=== PATIENT | female | born 1950 | race Caucasian/White ===

== ENCOUNTER → 2016-07-14 09:20 | Outpatient (CLI) | payer MEDICARE, BC ==
[2016-01-20 08:44] VITALS: BMI 29.9
[~2016-07-14 09:20] MED LIST: ALBUTEROL2.5 MG/3 M INH; BENZONATATE200 MG PO; BREO ELLIPTA 21 EACH; CROMOLYN SOD40 MG/ML NS; DYMISTA; MUCINEX600 MG PO; SALINE NASAL SP45 ML NS; SINGULAIR10 MG PO; SUDAFED 30 MG T30 MG PO; VENTOLIN HFA18 GM INH
[2016-07-18 15:22] LABS: ANCA - ANTIMYELOPEROXIDASE <9.0 U/mL (0.0-9.0); ANCA - ANTIPROTEINASE 3 <3.5 U/mL (0.0-3.5); ANCA - ATYPICAL <1:20 titer (Neg:<1:20); ANCA - CYTOPLASMIC <1:20 titer (Neg:<1:20); ANCA - PERINUCLEAR <1:20 titer (Neg:<1:20)
== END | disposition home or self-care (01) ==
LOC: D.RAD 09:20
PROVIDERS: Internal Medicine Pulmonary Disease
DX: J45.909 Unspecified asthma, uncomplicated (principal)

== ENCOUNTER → 2016-08-15 10:02 | Outpatient (CLI) | payer MEDICARE, BC ==
[2016-01-20 08:44] VITALS: BMI 29.9
== END | disposition home or self-care (01) ==
LOC: D.CT 10:02
DX: J32.9 Chronic sinusitis, unspecified (principal)

== ENCOUNTER → 2016-12-11 10:16 | Outpatient (CLI) | payer MEDICARE, BC ==
[2016-01-20 08:44] VITALS: BMI 29.9
== END | disposition home or self-care (01) ==
LOC: D.RT 10:16
DX: J45.909 Unspecified asthma, uncomplicated (principal)

== ENCOUNTER → 2017-03-28 14:24 | Outpatient (CLI) | payer MEDICARE, BC ==
[2016-01-20 08:44] VITALS: BMI 29.9
[~2017-03-28 14:24] MED LIST changes: +AZELASTINE137 MCG/0. NASAL; +BREO ELLIPTA 11 EACH INH; +CLARITIN 10 MG10 MG PO; +FLUTICASONE PRO16 GM NASAL; +IPRAT-ALBUT 0.5-3 ML UPD; +TESSALON PERLE100 MG PO; +TRAZODONE HCL50 MG PO
[2017-04-05 14:23] LABS: AEROBE ID Final report (())
== END | disposition home or self-care (01) ==
LOC: D.LABREF 14:24
PROVIDERS: Otolaryngology
DX: J32.0 Chronic maxillary sinusitis (principal)

== ENCOUNTER 2017-05-07 06:58 | Day surgery (SDC) | payer MEDICARE, BC ==
[~2017-05-07] VITALS: Ht 167.6 cm; Wt 73.5 kg
[~2017-05-07 06:58] MED LIST changes: -BREO ELLIPTA 11 EACH INH; -CLARITIN 10 MG10 MG PO; -IPRAT-ALBUT 0.5-3 ML UPD; -TESSALON PERLE100 MG PO; -TRAZODONE HCL50 MG PO
[2017-05-07] MEDS ORDERED: IPRAT-ALBUT 0.5-3 ML UPD (07:24)
[2017-05-07] MEDS ORDERED: AZELASTINE137 MCG/0. NASAL (07:26)
[2017-05-07] MEDS ORDERED: BREO ELLIPTA 11 EACH INH (07:26)
[2017-05-07] MEDS ORDERED: TESSALON PERLE100 MG PO (07:28)
[2017-05-07] MEDS ORDERED: TRAZODONE HCL50 MG PO (07:28)
[2017-05-07] MEDS ORDERED: CLARITIN 10 MG10 MG PO (07:29)
[2017-05-07 07:33] VITALS: BP 135/74; Ht 167.6 cm; Wt 73.5 kg
[2017-05-07 08:22] LABS: HEMATOCRIT 39.4 % (36.0-48.0); HEMOGLOBIN 13.2 g/dL (12-16); MCH 30.5 pg (26.0-34.0); MCHC 33.5 g/dL (31.0-37.0); MEAN PLATELET VOLUME 11.2 fL (7.4-10.4); RBC 4.33 10x6/uL (4.00-5.40); RDW 13.5 % (11.5-14.5); WBC 6.7 10x3/uL (4.8-10.8)
[2017-05-13 17:07] LABS: AEROBE ID Final report (())
[2017-05-13 17:07] LABS: AEROBE ID Final report (())
[2017-05-17 17:13] LABS: AEROBE ID Final report (())
[2017-05-20 18:06] LABS: AEROBE ID Final report (())
[2017-05-21 15:18] LABS: AEROBE ID Final report (()); RESULT 1 Cupriavidus paucula (())
--- NOTE | 2017-06-20 13:13 | HP ---
PATIENT: ANA MARIA PELAYO MEDICAL RECORD: [id number] ACCOUNT: [id number] LOCATION:D.[facility] : 46 ADMISSION DATE: 05/07/17 HISTORY AND PHYSICAL EXAMINATION HISTORY: Ms. Pelayo is 67. She has had persistent problems with sinusitis, COPD, and airway disease. She has been admitted for sinus surgery. PAST MEDICAL HISTORY: Includes COPD and sleep apnea. CURRENT MEDICATIONS: Include DuoNeb inhaler, Breo Ellipta inhaler, Astelin nasal spray, Flonase nasal spray, Singulair, Ventolin inhaler, Mucinex, and Tessalon Perles. ALLERGIES: MORPHINE. PHYSICAL EXAMINATION: GENERAL: She is overweight. FACE: Normal and symmetric. No lesions. EYES: Sclerae and conjunctivae are normal. EARS: Canals and TMs are normal. NOSE: She has a little bit of drainage bilaterally. ORAL CAVITY AND OROPHARYNX: Tongue protrudes to midline. Pharynx is normal. No lesions or masses. NECK: No masses. No adenopathy. CHEST: She has some mild rhonchi. CARDIOVASCULAR: Regular rate and rhythm. IMPRESSION: Significant airway disease. She has some chronic sinusitis, which may or may not be exacerbating that. She is being admitted for bilateral medial antrostomy, bilateral anterior ethmoidectomy, and bilateral inferior turbinate reduction. TRANSINT:[id number] Voice Confirmation ID: [id number] DOCUMENT ID: [id number] WARREN MUJICA MD at 1313 CC: [id number] DICTATION DATE: 05/03/17 1529 CARPENTER ASSEMBLER: 05/03/17 1626 [facility] 05/07/[address] [address]
--- NOTE | 2017-06-20 13:13 | OP ---
PATIENT NAME: ANA MARIA PELAYO MEDICAL RECORD: [id number] :46 LOCATION:[facility] ADMISSION DATE: SURGEON: WARREN SALDAÑA MD DATE OF OPERATION: 05/07/2017 PREOPERATIVE DIAGNOSIS: Chronic sinusitis. POSTOPERATIVE DIAGNOSIS: Chronic sinusitis. PROCEDURE: Bilateral middle meatal antrostomy, bilateral anterior ethmoidectomy, and cautery of the inferior turbinates. SURGEON: Warren Saldaña MD ANESTHESIA: General orotracheal. BLOOD LOSS: Less than 20 cc. SPECIMENS: Cultures from the right and left maxillary sinuses. PACKING: None. COMPLICATIONS: None. DISPOSITION: Recovery stable. PROCEDURE NOTE: She was brought to the operating room and placed in supine position, sedated and intubated by anesthesia. The table was turned 90 degrees. A head drape was applied and she was positioned for nasal surgery. Using a headlight and nasal speculum, both sides of the nose were examined. The inferior turbinates, the uncinate, and root of the middle turbinate were injected bilaterally with a total of 1.5 cc of 1% lidocaine 1:100,000 epinephrine. An Afrin pledget was placed in the middle meatus and along the inferior turbinate on each side. She was positioned, prepped and draped in the usual fashion for nasal surgery after that. After waiting for decongestion, the right side was examined first. The pledgets were removed. There was obvious purulence coming from the middle meatus and recovering the entire lateral nasal wall. A freer was used to medialize the middle turbinate. Just a little bit of pressure on the lateral nasal wall and inferior turbinate expressed purulence from the ostia. A curved olive tip suction was inserted into the maxillary sinus and a Luki trap was used to evacuate the sinus, which was just completely full of purulence. Once that was done, a microdebrider was used to open the maxillary ostia. There were polypoid changes on the lateral nasal wall that was all taken down and the ostia was opened up. The ethmoid cavity was entered inferomedially and the anterior ethmoids were taken down proceeding from front to back and there was a lot of purulence in the anterior ethmoids as well. Eventually function through the grand lamella and the posterior ethmoids looked completely cleaned. The rest of the ethmoid cavity was then cleaned up with upbiting forceps and then with the microdebrider. Once that was done, an Afrin pledget was placed in the ethmoid cavity anteriorly and then the left side was addressed. Both Afrin pledgets were removed and again the middle turbinate was medialized. The uncinate and the lateral nasal wall were normal. There were no other polypoid changes that were on the right side. It was fractured anteriorly. A portion of the uncinate was taken down with a microdebrider. The maxillary sinus was entered with a curved olive tip suction again and a Luki OPERATIVE REPORT [id number] ANA MARIA PELAYO S trap was used and evacuated the purulence from the maxillary sinus for culture. Then, the maxillary sinus was opened up using a backbiter and a microdebrider. The ethmoid cavity was entered inferomedially and the anterior ethmoids were taken down, which were fairly clean anterior ethmoidectomy not much polyps or purulence like the opposite side. Once that was done and the bone spicules were cleaned up, an Afrin pledget was placed in the anterior ethmoid cavity on that side. Then, some of the polypoid changes on the inferior turbinates, especially the right side, a suction cautery was used to shrink some of that down and both inferior turbinates were outfractured with a Sac elevator. Then, both Afrin pledgets were removed. Then, the right and left maxillary sinuses were irrigated using a large curved olive tip suction and 30 cc syringe, both maxillary sinuses and ethmoids were irrigated repeatedly with saline and completely rinsed clean. Then, the area was examined, the ethmoids were clean, the maxillary sinuses were clean. There was some bleeding from the lateral ethmoid cavity on both sides a little bit, but more on the right side just some oozing, so some FloSeal was placed into the ethmoid cavity bilaterally. The nasopharynx was suctioned and the field was clean and dry. She was awakened, extubated, and transported to recovery in good condition. No complications. TRANSINT:[id number] Voice Confirmation ID: [id number] DOCUMENT ID: [id number] WARREN SALDAÑA MD at 1313 CC: [id number] DICTATION DATE: 05/07/17 1144 ASSOCIATE SOFTWARE DEVELOPMENT ENGINEER: 05/07/17 1218 [facility] 05/07/17 [facility] [address] [place] [address]
== END 2017-05-07 13:20 | disposition home or self-care (01) ==
LOC: D.OPS 06:58 → D.PAN 07:30 → D.OPS 13:20
PROVIDERS: Anesthesiology; Otolaryngology
DX: J32.9 Chronic sinusitis, unspecified (principal); J44.9 Chronic obstructive pulmonary disease, unspecified; G47.30 Sleep apnea, unspecified; E66.3 Overweight; Z79.899 Other long term (current) drug therapy; Z88.5 Allergy status to narcotic agent; Z01.812 Encounter for preprocedural laboratory examination

== ENCOUNTER → 2017-08-24 11:33 | Outpatient (CLI) | payer MEDICARE, BC ==
[2017-05-07 07:33] VITALS: BMI 26.2
[~2017-08-24 11:33] MED LIST changes: +BREO ELLIPTA 11 EACH INH; +CLARITIN 10 MG10 MG PO; +IPRAT-ALBUT 0.5-3 ML UPD; +TESSALON PERLE100 MG PO; +TRAZODONE HCL50 MG PO
[2017-08-24 16:47] LABS: BASOPHILS 0.6 % (0-2); EOSINOPHILS 1.3 % (0-7); HEMATOCRIT 39.5 % (36.0-48.0); IMMATURE GRANULOCYTES 0.2 % (0-5); LYMPHOCYTES 17.5 % (15-50); MCH 30.7 pg (26.0-34.0); MCHC 32.9 g/dL (31.0-37.0); MCV 93.2 fL (80.0-100.0); MEAN PLATELET VOLUME 11.4 fL (7.4-10.4); MONOCYTES 7.5 % (2-11); NEUTROPHILS 72.9 % (40-80); PLATELET COUNT 233 10x3/uL (130-400); RBC 4.24 10x6/uL (4.00-5.40); RDW 13.8 % (11.5-14.5); WBC 5.4 10x3/uL (4.8-10.8)
[2017-08-24 17:01] LABS: CREATININE - SERUM 0.7 mg/dL (0.6-1.3)
== END | disposition home or self-care (01) ==
LOC: D.LABREF 11:33
PROVIDERS: Student in an Organized Health Care Education/Training Program
DX: J32.9 Chronic sinusitis, unspecified (principal); Z51.81 Encounter for therapeutic drug level monitoring; Z79.2 Long term (current) use of antibiotics

== ENCOUNTER → 2018-09-12 16:58 | Outpatient (CLI) | payer MEDICARE, BC ==
[2017-05-07 07:33] VITALS: BMI 26.2
== END | disposition home or self-care (01) ==
LOC: D.MAMMO 14:45
PROVIDERS: ATTEND Clinical Nurse Specialist Adult Health
DX: Z12.31 Encounter for screening mammogram for malignant neoplasm of breast (principal)

== ENCOUNTER → 2019-02-04 09:53 | Outpatient (CLI) | payer MEDICARE, BC ==
[2017-05-07 07:33] VITALS: BMI 26.2
== END | disposition home or self-care (01) ==
LOC: D.RT 09:53
PROVIDERS: ATTEND Internal Medicine Pulmonary Disease
DX: J45.909 Unspecified asthma, uncomplicated (principal)

== ENCOUNTER → 2019-05-22 09:33 | Outpatient (CLI) | payer MEDICARE, BC ==
[2017-05-07 07:33] VITALS: BMI 26.2
== END | disposition home or self-care (01) ==
LOC: D.CT 09:33
PROVIDERS: ATTEND Internal Medicine Pulmonary Disease
DX: J32.9 Chronic sinusitis, unspecified (principal)

== ENCOUNTER 2019-10-23 09:00 | Outpatient (CLI) | payer MEDICARE, BC ==
[2017-05-07 07:33] VITALS: BMI 26.2
== END 2019-10-23 10:00 | disposition home or self-care (01) ==
LOC: D.MAMMO 09:00
PROVIDERS: ATTEND Clinical Nurse Specialist Adult Health
DX: Z12.31 Encounter for screening mammogram for malignant neoplasm of breast (principal)

== ENCOUNTER → 2020-02-13 14:15 | Outpatient (CLI) | payer MEDICARE, BC ==
[2017-05-07 07:33] VITALS: BMI 26.2
== END | disposition home or self-care (01) ==
LOC: D.RT 14:15
PROVIDERS: ATTEND Internal Medicine Pulmonary Disease
DX: J45.909 Unspecified asthma, uncomplicated (principal)